=== PATIENT | male | born 1975 | race Caucasian/White ===

== ENCOUNTER 2018-10-23 09:58 | Outpatient (CLI) | payer OTHER ==
--- NOTE | 2018-10-23 11:42 | XRAY Report ---
Reason: ACUTE HEEL PAIN L X 6 MONTHS Procedure Date: 10/23/2018 Accession Number: [id number] / [id number] Procedure: XR - Calcaneus LT CPT Code: FULL RESULT: EXAM: LEFT CALCANEOUS RADIOGRAPHY EXAM DATE: 10/23/2018 09:57 AM. CLINICAL HISTORY: Acute heel pain left, x 6 months. COMPARISON: None. TECHNIQUE: 2 views. FINDINGS: Bones: Minimal inferior calcaneal spurring. No fractures or bone lesions. Joints: No subluxation is detected. Soft Tissues: Normal. No soft tissue swelling. IMPRESSION: Correlate minimal inferior calcaneal spurring to the location of pain. The posterior calcaneal insertion site of the Achilles tendon appears unremarkable. RADIA
== END 2018-10-23 09:59 | disposition home or self-care (01) ==
LOC: DI 09:58
PROVIDERS: ATTEND Podiatrist
DX: M77.32 Calcaneal spur, left foot (principal)

== ENCOUNTER 2019-03-28 11:08 | Emergency (ER) | payer OTHER ==
[2019-03-28 11:33] VITALS: BP 134/69
[2019-03-28] MEDS ORDERED: cephALEXin 250 MG CAPSULE PO STA (12:04)
--- NOTE | 2019-03-28 12:06 | ED Physician Documentation ---
PD HPI HEENT - Stated complaint Stated Complaint: MOUTH PX - Chief complaint Chief Complaint: Heent - History obtained from History obtained from: Patient - History of Present Illness Timing - onset: How many weeks ago (1) Timing - details: Still present Location: Mouth Similar symptoms before: Has not had sx before Recently seen: Other (Dental clinic.) - Additional information Additional information: The patient is a 43-year-old male who presents with a sore on the roof of his mouth behind the upper incisors. He first noticed it one week ago and it has persisted since that time. He was seen by a dentist who evaluated that and found no evidence of cavity as a cause for his sore. He denies fever, facial swelling, or sore throat. He denies history of similar symptoms in the past. Review of Systems Constitutional: denies: Fever Eyes: denies: Irritation Ears: denies: Ear pain Nose: denies: Congestion Throat: denies: Sore throat Cardiac: denies: Chest pain / pressure Respiratory: denies: Dyspnea, Cough GI: denies: Abdominal Pain, Nausea, Vomiting Skin: denies: Rash Musculoskeletal: denies: Neck pain Neurologic: denies: Headache PD PAST MEDICAL HISTORY - Past Medical History Past Medical History: No - Past Surgical History Past Surgical History: No - Present Medications Home Medications: Ambulatory Orders Medication Instructions Recorded Confirmed Hydrocodone/Acetaminophen 1 - 2 each PO Q6H PRN #14 tablet 03/28/19 [Hydrocodon-Acetaminophen 5-325] cephALEXin [Cephalexin] 500 mg PO TID #20 tablet 03/28/19 - Allergies Allergies/Adverse Reactions: Allergies Allergy/AdvReac Type Severity Reaction Status Date / Time No Known Drug Allergies Allergy Verified 03/28/19 11:46 - Social History Does the pt smoke?: No Smoking Status: Never smoker PD ED PE NORMAL - Vitals Vital signs reviewed: Yes (Borderline hypertension initially.) - General General: Alert and oriented X 3, Well developed/nourished - HEENT HEENT: Atraumatic, EOMI, Ears normal, Pharynx benign, Other (There is a raised lesion in the midline of the upper palate behind the medial upper incisors. It is approximately 1 cm in length. There is no tenderness to palpation of the teeth.) - Neck Neck: Supple, no meningeal sign, No adenopathy - Cardiac Cardiac: RRR - Respiratory Respiratory: No respiratory distress, Clear bilaterally - Derm Derm: No rash - Neuro Neuro: Alert and oriented X 3 Results - Vitals Vitals: Oxygen O2 Source Room air PD MEDICAL DECISION MAKING - ED course Complexity details: considered differential, d/w patient, d/w family ED course: The underlying cause for the patient's raised sore on the roof of his mouth is uncertain. The possibility of an oral infection, such as a dental apical abscess is the most likely etiology. Treatment in the emergency department included administration of cephalexin 500 mg orally. He is being discharged prescription for cephalexin, and for Vicodin, 10 tablets. I discussed with him and his the importance of follow-up with his dentist, as well as potentially worrisome signs or symptoms that should prompt reevaluation in the emergency department. Departure - Departure Disposition: 01 Home, Self Care Clinical Impression: Sore in mouth Condition: Stable Instructions: ED Tooth Pain Follow-Up: [facility] [Provider Group] Prescriptions: cephALEXin [Cephalexin] 500 mg PO TID #20 tablet Hydrocodone/Acetaminophen [Hydrocodon-Acetaminophen 5-325] 1 - 2 each PO Q6H PRN #14 tablet PRN Reason: pain Comments: Take cephalexin 3 times daily as prescribed. Continue ibuprofen, up to 800 mg 3 times daily for anti-inflammatory effect. You can use Vicodin as prescribed if needed for pain. Follow-up with your dentist. Call to schedule an appointment. Return to the emergency department if you develop increasing pain or swelling in your mouth, or otherwise worsening symptoms. Discharge Date/Time: 03/28/19 12:12
== END 2019-03-28 12:12 | disposition home or self-care (01) ==
LOC: ED 11:08
DX: K13.79 Other lesions of oral mucosa (principal)
CPT/HCPCS: 99282; 99283; A9270

== ENCOUNTER 2020-10-04 07:00 | Outpatient (CLI) | payer OTHER ==
--- NOTE | 2020-10-04 16:04 | XRAY Report ---
PROCEDURE: Shoulder 2 View LT INDICATIONS: L SHOULDER PX TECHNIQUE: 2 views of the shoulder were acquired. COMPARISON: None. FINDINGS: Bones: No fractures or dislocations. No suspicious bony lesions. Visualized ribs appear intact. Soft tissues: No suspicious soft tissue calcifications. 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 Reviewed by: Peter Perez MD on 10/04/2020 4:03 PM PDT Approved by: Peter Perez MD on 10/04/2020 4:03 PM PDT Station ID: [id number]
== END 2020-10-04 23:59 | disposition home or self-care (01) ==
LOC: DI.N 07:00
PROVIDERS: ATTEND Nurse Practitioner
DX: M25.512 Pain in left shoulder (principal); M19.012 Primary osteoarthritis, left shoulder

== ENCOUNTER 2023-11-02 07:42 | Outpatient (CLI) | payer OTHER ==
[2023-11-02 07:55] LABS: HCT - HEMATOCRIT 43.4 % (42.0-52.0); HGB - HEMOGLOBIN 14.6 g/dL (14.0-18.0); MEAN CORPUSCULAR HGB CONC 33.6 g/dL (32.0-36.0); MEAN CORPUSCULAR VOLUME 89.1 fL (80.0-94.0); RED BLOOD COUNT 4.87 10^6/uL (4.70-6.10); RED CELL DISTRIBUTION WIDTH 12.4 % (12.0-15.0); WHITE BLOOD COUNT 5.3 x10^3/uL (4.8-10.8)
[2023-11-02 08:28] LABS: THYROID STIMULATING HORMONE 2.13 uIU/mL (0.34-5.60)
[2023-11-02 08:41] LABS: ALBUMIN 4.4 g/dL (3.2-5.5); ALBUMIN/GLOBULIN RATIO 1.7 (1.0-2.2); ALKALINE PHOSPHATASE 36 IU/L (42-121); ALT ALANINE AMINOTRANSFERASE 32 IU/L (10-60); AST ASPARTATE AMINOTRANSFERASE 24 IU/L (10-42); BILIRUBIN,TOTAL 0.6 mg/dL (0.2-1.0); BUN - BLOOD UREA NITROGEN 14 mg/dL (6-20); CALCIUM 9.8 mg/dL (8.5-10.3); CARBON DIOXIDE - CO2 28 mmol/L (21-32); CHLORIDE 104 mmol/L (101-111); CHOL/HDL RATIO 5.2 (<5.0); CHOLESTEROL 268 mg/dL; GFR - MDRD 79 (>89); GLUCOSE 112 mg/dL (74-104); HDL CHOLESTEROL 52 mg/dL; LDL CHOLESTEROL,CALCULATED 186 mg/dL; LDL/HDL RATIO 3.6 (<3.6); POTASSIUM 4.5 mmol/L (3.5-4.5); SODIUM 136 mmol/L (135-145); TRIGLYCERIDES 150 mg/dL (48-352); VLDL CHOLESTEROL 30 mg/dL
[2023-11-02 09:42] LABS: ESTIMATED AVERAGE GLUCOSE 108 mg/dL (70-100); HEMOGLOBIN A1c% 5.4 % (4.27-6.07)
== END 2023-11-02 07:43 | disposition home or self-care (01) ==
LOC: LAB 07:42
PROVIDERS: ATTEND Family Medicine
DX: F41.8 Other specified anxiety disorders (principal); F90.0 Attention-deficit hyperactivity disorder, predominantly inattentive type
CPT/HCPCS: 36415; 80053; 80061; 83036; 83721; 84443; 85027

== ENCOUNTER 2024-03-18 13:28 | Outpatient (CLI) | payer OTHER ==
--- NOTE | 2024-03-18 14:16 | Sleep Patient Instructions ---
Sleep Center Visit Summary - Patient Visit Information Reason for Visit: Initial consult for evaluation of sleep disordered breathing and other sleep issues. - Patient Instructions Instructions Attached: Sleep Study, Sleep Study Home Monitor Additional Instructions: You will be completing a sleep study, either an in-lab polysomnography (PSG) or home sleep study (HST). You will follow-up in the sleep care office after the sleep study is completed to hear the results and talk about therapy, if needed. You will be called by our office staff to schedule this appointment, but you may contact us with any questions. - Clinic Information Contact: [facility] [address] [place] [id number] [email or web address] T: [phone]
--- NOTE | 2024-03-18 14:24 | SLEEP CARE CONSULTATION ---
Information from patient questionnaire entered by Chelsie Rome. I have reviewed and concur with the information entered by Chelsie Rome. This document represents the service I personally performed and the decisions made by me, Ghazala Sen ARNP. History of Present Illness Service Date and Time: 03/18/2024 1328 Reason for Visit: New patient Chief Complaint: reports: Unrefreshed sleep, Snoring, Observed pauses in breathing, Frequent awakenings at night Date of Onset: 10 + years Usual bedtime: 10 PM Time it takes to fall asleep: 5 min Snores at night: Yes Observed to quit breathing while asleep: Yes Sleeps alone due to snoring: No Number of times waking at night: 3 - 8 Reasons for waking at night: reports: Snoring, Gasping for air, Other (Unknown reason) Toss, Turn, or Twitch while sleeping: Yes Recalls having dreams: Yes Usually gets out of bed at: 5:45 AM Feels refreshed in the morning: No Morning headache: No Sleepy or fatigued during the day: No Ever fallen asleep while driving: No Takes day naps: No Dreams during day naps: No Prior sleep studies: No Additional HPI information: I had the pleasure of seeing MAGI FRANK today regarding the possibility of him having a sleep disorder. His current complaints are frequent night awakenings, observed pauses in breathing, snoring and unrefreshed sleep. He comes in today because his snoring is keeping his awake at night. He ordered a snoring mouth guard online which did help improve his snoring. He talked to his dentist about a better mouth guard but was recommended to seek evaluation here first. He does not wake up feeling refreshed in the morning but is not sure if it is his early get up time or other reasons. He has woke up feeling like he is gasping for air and other times just for unknown reasons. He has a history of ADHD. 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 Patient is and lives in [place]. Have you smoked in the past 12 months: No Alcohol use: Yes Alcohol amount and frequency: 1 - 3 Caffeine use: Yes Caffeine amount and frequency: 3 - 6 cups Family History Family history of sleep disordered breathing: No Allergies and Home Medications Known drug allergies: No Drug allergies reviewed: Yes Home medication list reviewed: Yes (as listed) Allergy and home medication list: Allergies No Known Drug Allergies Allergy (Verified 03/18/24 14:10) Home Medications Adderall 10 mg Tablet See Rx Instructions .ROUTE .COMPLEX 03/18/24 [History] buPROPion See Rx Instructions .ROUTE .COMPLEX 03/18/24 [History] Review of Systems Weight gain over past 5 years: 35 Weight loss over past 5 years: 20, currently down in weight Cardiovascular: denies: high blood pressure Gastrointestinal: denies: heartburn Urinary: reports: frequency Psychiatric: reports: Attention Deficit Hyperactivity, depression Ear/Nose/Throat: denies: tonsillectomy Musculoskeletal: reports: neck pain, back pain Physical Exam Vital signs obtained and entered by: Ghazala Tesfaye NP Blood Pressure: 129/90 Cuff size: long (left arm) Heart Rate: 53 O2 Saturation: 98 Height: 6 ft Weight: 233 lb 3.2 oz Body Mass Index: 31.6 BMI Classification: Obese Neck circumference: 17.75 Nostrils: patent to airflow Mouth and throat: narrow oropharynx Soft palate: long Hard palate: normal Uvula: normal Uvula visualization: 25% Mallampati Class III Tongue: enlarged in size with teeth hancock on lateral edges Tonsils: small Neck: normal w/o lymphadenopathy or thyromegaly Heart: regular rate and rhythm Lungs: clear bilaterally Impression and Plan 1. Suspected Obstructive Sleep Apnea-Hypopnea Syndrome, as suggested by a history of loud and irregular snoring, observed cessation of breath while asleep, gasping or choking in sleep, frequent awakening during the night, unrefreshed sleep and cognitive impairment. Narrow oropharynx and obesity are common predisposing factors for obstructive sleep apnea-hypopnea syndrome. I recommend proceeding to polysomnography to confirm the diagnosis and to assess severity. If the patient has significant sleep disordered breathing, a manual CPAP titration study will also be performed to find the optimal treatment pressure. I informed the patient of what the sleep studies involve and after some discussion, obtained agreement to proceed. The pathophysiology of obstructive sleep apnea-hypopnea syndrome was discussed with the patient and health risks of cardiovascular and cerebrovascular disease if not treated. 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 Patient agreed to plan. * Schedule polysomnography +- manual CPAP titration study and return in 1-2 weeks after the study to discuss result and initiate therapy. * Avoid long distance driving or driving when feeling sleepy. * Avoid alcohol, sedative and muscle relaxant around bedtime. * Attempt to lose weight. * Review instructions provided by trained office staff on how to prepare for the sleep study. * Return for follow-up after sleep study completed. Counseling Topics: Weight loss health impact Plan: PSG/HST and followup Visit Type: In Office Time Spent with Patient (minutes): 30 Provider Statement: I spent 100% of the Face to Face Visit with the patient with greater than 50% spent counseling the patient and coordination of care.
[2024-03-18 14:27] VITALS: BP 129/90; O2SAT 98
== END 2024-03-18 13:29 | disposition home or self-care (01) ==
LOC: SC 13:28
PROVIDERS: ATTEND Nurse Practitioner Family
DX: G47.8 Other sleep disorders (principal); R06.81 Apnea, not elsewhere classified; R06.83 Snoring; R41.89 Other symptoms and signs involving cognitive functions and awareness; E66.9 Obesity, unspecified; Z68.31 Body mass index [BMI] 31.0-31.9, adult
CPT/HCPCS: 99203; 99212